=== PATIENT | female | born 1990 | race Caucasian/White ===

== ENCOUNTER 2017-04-22 11:09 | Inpatient (IN) | payer MEDICAID ==
[2013-10-02 05:45] VITALS: BMI 28.2
[2017-04-22] MEDS ORDERED: Vancomycin 1 GM in Sodium Chloride 0.9% 200 ML IVPB STA (11:24)
[2017-04-22] MEDS ORDERED: Lactated Ringer's 1,000 ML IV SCH (11:30)
[2017-04-22] MEDS ORDERED: Oxycodone/Acetaminophen 5/325 mg Tab PO PRN ×2 (11:56)
[2017-04-22] MEDS ORDERED: Benzocaine/Menthol 20%-0.5% Topical Spray (60 ml) TOP SCH (12:00)
[2017-04-22 12:16] LABS: BASO # 0.1 K/uL (0.0-0.2); BASO % 0.5 % (0.0-2.0); EOS # 0.1 K/uL (0.0-0.7); EOS % 0.5 % (0.0-4.0); HEMOGLOBIN 10.1 g/dL (11.0-16.0); LYMPH # 2.2 K/uL (1.0-4.3); LYMPH % 15.4 % (20.0-40.0); MEAN CELL VOLUME 78.6 fL (81.0-99.0); MEAN CORPUSCULAR HEMOGLOBIN 25.7 pg (27.0-31.0); MEAN CORPUSCULAR HGB CONC 32.7 g/dL (33.0-37.0); MONO # 0.6 K/uL (0.0-0.8); MONO % 4.4 % (0.0-10.0); NEUT # 11.5 K/uL (1.8-7.0); NEUT % 79.2 % (50.0-75.0); NRBC % 0.1 % (0.0-2.0); RBC 3.93 Mil/uL (3.80-5.20); RED CELL DISTRIBUTION WIDTH 15.7 % (11.5-14.5); WHITE BLOOD COUNT 14.6 K/uL (4.8-10.8)
[2017-04-22 12:18] LABS: SQUAMOUS EPITHIAL 1 /hpf (0-5); URINE BILIRUBIN NEGATIVE (NEGATIVE); URINE BLOOD NEGATIVE (NEGATIVE); URINE CLARITY Clear (Clear); URINE COLOR Yellow (YELLOW); URINE GLUCOSE (UA) NORMAL (Normal); URINE LEUKOCYTE ESTERASE NEG Leu/uL (Negative); URINE NITRATE NEGATIVE (NEGATIVE); URINE PROTEIN NEGATIVE (NEGATIVE); URINE UROBILINOGEN NORMAL mg/dL (0.2-1.0)
[2017-04-22 12:46] LABS: BARBITURATES, UR NEGATIVE (NEGATIVE); BENZODIAZEPINES, UR NEGATIVE (NEGATIVE); OPIATES, UR NEGATIVE (NEGATIVE); PHENCYCLIDINE, UR NEGATIVE (NEGATIVE)
--- NOTE | 2017-04-22 15:36 | OBADHP ---
Datetime: 04/22/2017 12:38 Admit Comment, IP Provider: CC: " Contractions" HPI: Patient is a 26 year old at 38 weeks and 3 days, who presents to [facility] with complaints of contractions that started this morning around 7:30am. Patient states that her the contractions dye s increased in intensity. Patient denies passage of mucus plug, leakage of fluid, vaginal bleeding or spotting and endorses movement. Patient reports that she has not had care since her f irst trimester in [place]. Patient reports that she had care for her previous pregnancies. issues: Denies OB Hx: G1: Male infant, , 7lbs 3oz, 08/2011 G2: Male infant, , 8lbs 4oz, 07/2012 G3: Female infant, , 7lbs, 10/2013 G4: Male infant, , 8lbs 5oz, 10/2015 G5: Spontaneous , 01/2016 [employer] Hx: Menarche: 9 [place]: 9/5days/regular Denies Hx of abnormal pap smear Denies Hx of STDs Denies Hx of ovarian cyst or fibroids PMHx: Asthma ( Not active, has not used inhaler in years) PSHx: Left breast cyst removal FHx: Mother ( Brain Tumor), family hx of ovarian cancer Maternal grandfather( DM) Medications: None Allergies: Penicillin and Ciprofloxacin, reaction (Hives) Social Hx: lives with and children, unemployed, denies current or former use of tobacco, i llicit drug VS: 122/50, HR: 81 Physical Examination: See above A/P: Patient is a 26 year old at 38.3 weeks presenting with contractions in active labor w ith reassuring FHT 1. Admit to labor and delivery 2. Stable, Afebrile 3. Extensive admission labs 4. NPO 5. CEFM 6. Expectant management 7. Plans discussed with attending Clau Karimi DO, PGY-1 patient examined.patient in active labor.minimal care.no labs ro documents available -checl labs -admit to unit agre with resident exam, assessment and plan Extremities - PN: Normal Abdomen - PN: Normal Lungs - PN: Normal Heart - PN: Normal General - PN: Normal FHR - Baseline A Provider: 135 Membranes, Provider: Intact Comments, ACOG Physical Exam: Gen: NAD, in active labor Cardio: RRR, normal S1, S2 Pulm: CTA bilaterally Abdo: Active contractions, gravid Ext: No edema, no clubbing and no cyanosis SVE: 6-7cm/100%/+1 EFM: Regular contractions FHR: 130s, + accelerations Gestation - Est Wks by US: 38.3 IP Hx Assessment: No Care IP Chief Complaint: Uterine contractions NICHD Variability Prov Fetus A: Moderate 6-25bpm NICHD Accel Fetus A IP Provider: [id number] NICHD Decel Fetus A IP Provider: None Dilatation, Provider: 6 Effacement, Provider: 100 Station, Provider: 1 EGA AdmitDate IP: 38.3 IP Adm Impression: Term, intrauterine IP Admit Plan: Admit to unit
--- NOTE | 2017-04-22 15:37 | OBDS ---
DELIVERY PERSONNEL Delivery Doctor: Kirt Ortez MD Manager Presentation: Jaspreet Enamorado RN Resident: julianna MATERNAL INFORMATION Delivery Anesthesia: None Estimated Blood Loss (ml): 300 Placenta Cultured: No Maternal Complications: Other Other Maternal Complications: noPNC unknown GBS Provider Comments: of a female from [place] position.body and shoulders delivered without dif ficulty.cprd clamped and cut.cord blood collected.placenta spontaneosuly delivered.perineum intact ebl 300cc patient andinfant stable peds attended the delivery LABOR SUMMARY EDC: 05/03/2017 00:00 No. Babies in Womb: 1 Attempted: No Labor Anesthesia: None LABOR INFORMATION Reason for Induction: Not Applicable Onset of Labor: 04/22/2017 02:00 Complete Dilatation: 04/22/2017 11:30 Oxytocin: N/A Group B Beta Strep: Not Done Antibiotics # of Doses: 0 Steroids Given: None Reason Steroids Not Administered: Not Applicable MEMBRANES Membranes Rupture Method: Artificial Rupture of Membranes: 04/22/2017 11:30 Length of Rupture (hrs): 0.15 Amniotic Fluid Color: Clear Amniotic Fluid Amount: Moderate Amniotic Fluid Odor: Normal STAGES OF LABOR Stage 1 hrs: 9 Stage 1 min: 30 Stage 2 hrs: 0 Stage 2 min: 9 Stage 3 hrs: 0 Stage 3 min: 6 Total Time in Labor hrs: 9 Total Time in Labor min: 45 VAGINAL DELIVERY Episiotomy: None Laceration Extension: N/A Initial Vag Sponge Count: 10 Final Vag Sponge Count: 10 Initial Vag Sharps Count: 0 Final Vag Sharps Count: 0 Sponge Count Correct: Yes; Vaginal Sweep Performed Sharps Count Correct: N/A BABY A INFORMATION Infant Delivery Date/Time: 04/22/2017 11:39 Method of Delivery: Vaginal Born in Route : No : N/A Forceps: N/A Vacuum Extraction: N/A Shoulder Dystocia : No SHOULDER DYSTOCIA BABY A Infant Delivery Date/Time: 04/22/2017 11:39 PRESENTATION/POSITION BABY A Presentation: Cephalic Cephalic Presentation: Vertex Breech Presentation: N/A PLACENTA INFORMATION BABY A Placenta Delivery Time : 04/22/2017 11:45 Placenta Method of Delivery: Spontaneous Placenta Status: Delivered SCORES BABY A Heart Rate 1 min: >100 bpm Resp Effort 1 min: Good Cry Reflex Irritability 1 min: Cough or Sneeze or Pulls Away Muscle Tone 1 min: Active Motion Color 1 min: Body [place], Extremities Blue Resuscitation Effort 1 min: Tactile Stimulation SCORE 1 MIN: 9 Heart Rate 5 min: >100 bpm Resp Effort 5 min: Good Cry Reflex Irritability 5 min: Cough or Sneeze or Pulls Away Muscle Tone 5 min: Active Motion Color 5 min: Body [place], Extremities Blue Resuscitation Effort 5 min: N/A SCORE 5 MIN: 9 INFORMATION BABY A Gestational Age at Delivery: 38.3 Gestational Status: Term Infant Outcome : Liveborn Infant Condition : Stable Sex: Female IDENTIFICATION/MEDS BABY A ID Band Number: [id number] ID Band Location: Left Leg; Left Arm Sensor Applied: Yes Sensor Number: [id number] Sensor Location : Cord Clamp WEIGHT/LENGTH BABY A Birthweight (gms): 3440 Weight (lb): 7 Infant Weight (oz): 9 Length Inches: 19.75 Infant Length cms: 50.2 CORD INFORMATION BABY A No. Cord Vessels: 3 Nuchal Cord : N/A Cord Blood Taken: Yes Infant Suction: Mouth; Nose
[2017-04-22 16:38] LABS: RAPID PLASMA REAGIN NONREACTIVE (NONREACTIVE)
[2017-04-23 00:14] VITALS: O2SAT 98
[2017-04-23 08:03] LABS: HEMOGLOBIN 9.4 g/dL (11.0-16.0); MEAN CELL VOLUME 78.5 fL (81.0-99.0); MEAN CORPUSCULAR HEMOGLOBIN 25.5 pg (27.0-31.0); MEAN CORPUSCULAR HGB CONC 32.5 g/dL (33.0-37.0); RBC 3.68 Mil/uL (3.80-5.20); RED CELL DISTRIBUTION WIDTH 15.5 % (11.5-14.5); WHITE BLOOD COUNT 18.6 K/uL (4.8-10.8)
--- NOTE | 2017-04-23 08:11 | OBPPN ---
Datetime: 04/23/2017 08:07 PP Pain Prov: Within normal limits PP Nausea Prov: Denies PP Flatus Prov: Yes PP Abdomen/Uterus Prov: Normal PP Lochia Prov: Normal PP Extremities Prov: Normal PP Comments Phys Exam Prov: fudus below umblicus ext no edema,no calf PP Impression Prov: Normal progression PP Plan Prov: Continue present management PP Progress Note Prov: pt was seen at bed side, pain under control,no n/v, tolerating deit,voiding,m in locha ppd#1 s/p cont pp care cont pain ma reg deit Vital Signs Provider PP: Reviewed
[2017-04-23] MEDS: Multiple Vitamins Tab PO SCH (09:55)
[2017-04-24 08:39] VITALS: BP 119/56
[2017-04-24] MEDS: Multiple Vitamins Tab PO SCH (10:29)
[2017-04-24] MEDS ORDERED: Influenza Vaccine 60 mcg/0.5 mL SYR (4YR UP) IM ONE (10:33)
[2017-04-24 12:22] LABS: BASO # 0.1 K/uL (0.0-0.2); BASO % 0.9 % (0.0-2.0); EOS # 0.3 K/uL (0.0-0.7); EOS % 2.2 % (0.0-4.0); HEMOGLOBIN 9.8 g/dL (11.0-16.0); LYMPH # 3.2 K/uL (1.0-4.3); LYMPH % 23.5 % (20.0-40.0); MEAN CELL VOLUME 78.4 fL (81.0-99.0); MEAN CORPUSCULAR HEMOGLOBIN 25.7 pg (27.0-31.0); MEAN CORPUSCULAR HGB CONC 32.7 g/dL (33.0-37.0); MEAN PLATELET VOLUME 8.8 fL (7.2-11.7); MONO # 0.7 K/uL (0.0-0.8); MONO % 5.2 % (0.0-10.0); NEUT # 9.3 K/uL (1.8-7.0); NEUT % 68.2 % (50.0-75.0); RBC 3.82 Mil/uL (3.80-5.20); RED CELL DISTRIBUTION WIDTH 15.5 % (11.5-14.5); WHITE BLOOD COUNT 13.7 K/uL (4.8-10.8)
--- NOTE | 2017-04-24 17:30 | OBPPN ---
Datetime: 04/24/2017 09:16 PP Progress Note Prov: Patient was seen and examined at bedside. Patient reports that she is doing w ell and pain is well-controlled. Patient admits mild lochia, passing flatus, urinating without diffic ulty and bowel movement. Patient is tolerating diet and ambulating without difficulty. Patient is eliana ast feeding and bottle feeding. 14.6>10.0/30.9<177 18.6>9.4/28.9<173, f/u repeat wbc 13.7>9.8/30.0<199 A+, rubella Immune VS: BP: 114/65 HR:85, Temp: 98.6 Physical Examination: Gen: Well appearing, NAD Cardio: RRR, normal S1, S2 Abdomen: Soft, non-tender, fundus is firm and 1cm below the umbilicus Ext: No edema, no clubbing and no cyanosis A/P: Patient is a 26year S/P with 2nd degree laceration, PPD#2 1. Stable, Afebrile 2. Pain well-controlled 3. Continue hydration and ambulation 4. Continue breast feeding 5. Discharge home today: Pelvic rest for 6 weeks, establish care in the clinic and f/u in 6 week, continue hydration and ambulation, continue breast feeding, continue ferrous sulfate 325mg PO BID and Motrin for pain control. 6. Plans discussed with attending Clau Karimi DO, PGY-1 Attending Note: Patient seen and evaluated by me withthe Resident. I agree with the above. In elroy tion: D/W contraception. Discussion of available options ensued; patient undecided. Patient is clini alessandra stable.
--- NOTE | 2017-04-24 17:38 | OBDCSUM ---
Datetime: 04/24/2017 15:00 Discharged to, Provider: Home Follow up at, Provider: [facility] Disch Instr Activity: Normal activity; May be up to bathroom; May be up for meals; May Shower Disch Instr Diet: Regular Discharge Diet restrict Prov: none Discharge Diagnosis, Provider: Term Delivered Discharge Time: 04/24/2017 15:01 Follow up in weeks, Provider: 6 weeks Disch Referrals: None Contraception discussed, Prov: Yes Disch Activity Restrictions: No lifting; No sexual activity; Nothing in vagina - [place], tampon s, douche Discharge Diagnosis Prov Other: No care Anemia Contraception counseling Contraception after Delivery: Tubal Ligation Datetime: 04/24/2017 12:48 Discharged to, Provider: Home Follow up at, Provider: [facility] Disch Instr Activity: Normal activity; May be up to bathroom; May be up for meals; May Shower Disch Instr Diet: Regular Discharge Diet restrict Prov: none Discharge Instructions, Provider: Routine instructions given Discharge Diagnosis, Provider: Term Delivered Discharge Time: 04/24/2017 15:00 Follow up in weeks, Provider: 6 weeks Disch Referrals: None Contraception discussed, Prov: Yes Disch Activity Restrictions: No lifting; No sexual activity; Nothing in vagina - [place], tampon s, douche Discharge Comment, Provider: Please discharge patient home Pelvic rest/nothing per vagina for 6 weeks, establish care in the clinic and f/u in 6 week, Continue hydration and ambulation, continue breast feeding Continue ferrous sulfate 325mg PO BID and Motrin for pain control. Please return to the hospital with symptoms of fever, chills, nausea, fever, abnormal vaginal blee ding, abnormal/foul vaginal discharge, abdominal pain. Contraception after Delivery: Undecided
[2017-04-24 22:52] VITALS: PULSE 85; RESP 20; TEMP 98.6
== END 2017-04-24 15:30 | disposition home or self-care (01) | DRG 373 ==
LOC: C.EROB 11:09 → C.4D 11:22 → C.4M 13:40
PROVIDERS: ADMIT Student in an Organized Health Care Education/Training Program; ATTEND Student in an Organized Health Care Education/Training Program
PROC: 10E0XZZ Delivery of Products of Conception, External Approach (ICD-10-PCS; principal; 2017-04-22)
PROC: 10907ZC Drainage of Amniotic Fluid, Therapeutic from Products of Conception, Via Natural or Artificial Opening (ICD-10-PCS; 2017-04-22)
DX: O99.02 Anemia complicating childbirth (principal); Z37.0 Single live birth; Z3A.38 38 weeks gestation of pregnancy